=== PATIENT | male | born 1955 | race Caucasian/White ===

== ENCOUNTER → 2020-02-15 | Outpatient (CLI) | payer BC ==
--- NOTE | 2020-03-25 11:30 | REP ---
LOW-DOSE SCREENING NONCONTRAST CHEST CT HISTORY: Nicotine dependence. This report was delayed due to a protracted network interruption sustained by this facility in addition to efforts to obtain prior CT study. COMPARISON: Chest CT study has been retrieved from [facility] dated 12/29/2018. CT FINDINGS: Preliminary digital embedded systems engineer radiograph demonstrates dual-lead pacemaker. Hyperinflated lungs are noted. There are advanced emphysematous changes in the lung robles. There is a new wedge-shape peripheral infiltrate in the right lower lobe posteriorly not present on 12/29/2018. This area of ground-glass and consolidative opacity measures 3.7 cm and is most compatible with an acute pneumonia. There is a similar area of peribronchovascular opacification in the left upper lobe anteriorly, which measures 2.8 cm in greatest diameter. This is also new compared to the prior study and may reflect pneumonia as well. There is an adjacent ill-defined nodular opacity 9 mm in diameter. There are two new left upper lobe nodular opacities measuring 7 and 6 mm in greatest diameter posterosuperiorly. These were not apparent previously. There is a left apical nodule measuring 6 mm in transverse dimension x 8 mm anteroposterior, which is visible in retrospect on the prior study and has enlarged. There is no evidence of pleural effusion. There are a few scattered tiny granulomatous calcifications. There is a pleural-based noncalcified pulmonary nodule in the left lower lobe posterolaterally, which measures 5 mm in diameter. This is unchanged from the prior study. There is a perifissural nodule at the left base, which appears benign. IMPRESSION: Interval pulmonary parenchymal opacity suggestive of pneumonia. Follow-up chest CT study suggested in four to six months. MTDD
== END ==
LOC: M RAD 11:30
PROVIDERS: ATTEND Physician Assistant
DX: Z12.2 Encounter for screening for malignant neoplasm of respiratory organs (principal)

== ENCOUNTER → 2020-04-15 | Outpatient (CLI) | payer BC ==
--- NOTE | 2020-04-18 13:12 | REP ---
NON-CONTRAST CHEST CT: 04/15/20. CLINICAL: Follow-up abnormal lung findings. COMPARISON: 02/15/20, 12/16/17. TECHNIQUE: Axial non-contrast images from the thoracic inlet to the upper abdomen with coronal and sagittal reformations. FINDINGS: Advanced COPD/emphysematous changes are again noted throughout the bilateral lung robles along with scattered fibrosis/scarring and minimal bronchiectasis. Few scattered nodular densities are again identified and appear either stable or minimally improved as compared to 02/15/20. No new significant area of consolidation, nodule or mass lesion appreciated. No obvious adenopathy noted. No effusion or pneumothorax identified. Atherosclerotic changes to the thoracic aorta and coronary arteries unchanged. Limited upper abdomen demonstrates normal bilateral adrenal glands and evidence for prior cholecystectomy. Musculoskeletal structures demonstrate age related changes without acute osseous abnormality. IMPRESSION: 1. Advanced COPD/emphysematous changes similar to prior examination. 2. Previously noted ill-defined small areas of density/consolidation either remain stable or minimally improved and no new acute significant process is appreciated. Consider follow-up examination in 6 months to confirm stability. MTDD
== END ==
LOC: M RAD 13:04
PROVIDERS: ATTEND Physician Assistant
DX: J44.9 Chronic obstructive pulmonary disease, unspecified (principal); R91.8 Other nonspecific abnormal finding of lung field

== ENCOUNTER → 2020-09-18 | Outpatient (CLI) | payer BC, MEDICARE ==
--- NOTE | 2020-09-18 10:57 | REP ---
INDICATION: OTHER NON SPECIFIC ABNORMAL FINDING OF LUNG FIELD COMPARISON: 06/02/2020 (outside examination) TECHNIQUE: Axial noncontrast images from the thoracic inlet to the upper abdomen with coronal and sagittal reformations. This CT examination was performed using the following dose reduction techniques: Automated exposure control, adjustment of mA and/or kv according to the patient's size, and use of iterative reconstruction technique. FINDINGS: Advanced COPD/emphysematous changes with scattered scarring and bronchiectasis again noted. Small irregular area of nodular density in the posterior left upper lobe (image 27) is decreased from prior examination. New moderate areas of somewhat ill-defined consolidation and ground-glass opacities along with small pleural reactions are now identified in the lower lobes (right greater than left). Small new scattered nodular densities are also appreciated primarily in the right lower lung zone measuring up to approximately 13 mm (image 70). Nonspecific possibly reactive mediastinal lymph nodes measure up to approximately 12 mm short axis diameter. Thoracic aorta, pulmonary vasculature, and heart/pericardium are essentially stable with atherosclerotic changes again noted. No cardiomegaly or pericardial effusion. Limited upper abdomen demonstrates normal bilateral adrenal glands and evidence for prior cholecystectomy. IMPRESSION: New areas of consolidation involving the lower lobes as well as new scattered nodular opacities primarily in the right lower lung zone measure up to 13 mm. These findings likely represent acute infectious/inflammatory process although malignancy cannot definitively be excluded. Short-term follow-up examination is recommended. <Electronically signed by Jerald Bond > 09/18/20 [id number]
== END ==
LOC: M RAD 09:50
PROVIDERS: ATTEND Internal Medicine Pulmonary Disease
DX: R91.8 Other nonspecific abnormal finding of lung field (principal)

== ENCOUNTER → 2021-01-02 | Outpatient (CLI) | payer MEDICARE ==
--- NOTE | 2021-01-02 13:33 | REP ---
INDICATION: ABN FINDING OF LUNG COMPARISON: 09/18/2020, 06/02/2020, 02/15/2020 TECHNIQUE: Axial noncontrast images from the thoracic inlet to the upper abdomen with coronal and sagittal reformations. This CT examination was performed using the following dose reduction techniques: Automated exposure control, adjustment of mA and/or kv according to the patient's size, and use of iterative reconstruction technique. FINDINGS: Advanced COPD/emphysematous changes and scattered scarring along with 5 mm noncalcified subpleural nodule along the periphery of the left lower lobe (image 76) and small focal area of scarring in the posterior left upper lobe (image 24) remain stable through 02/15/2020. The remainder of the various scattered nodules, small opacities and areas of airspace disease throughout the previous examinations including 13 mm nodule and right lower lobe opacity on most recent exam dated 09/19/2019 have all resolved. No new or increasing abnormal findings are appreciated on current examination. No consolidation. No effusion. No pneumothorax. Tracheobronchial tree is patent. Atherosclerotic changes to the aorta and coronary arteries again noted without aortic aneurysm or cardiomegaly. No pericardial effusion. Pacemaker identified with leads in satisfactory position. Surrounding musculoskeletal structures demonstrate age-related degenerative changes. IMPRESSION: 1. Chronic advanced COPD/emphysematous changes with minimal scattered scarring. Stable small subpleural left lower lobe nodule and small focus of scarring in the left upper lobe remain unchanged through 02/15/2020. 2. All further previously noted areas of consolidation, nodules or atelectasis have resolved. No increasing or new areas of consolidation. No effusion. <Electronically signed by Jerald Bond > 01/02/21 [id number]
== END ==
LOC: M RAD 13:00
PROVIDERS: ATTEND Internal Medicine Pulmonary Disease
DX: J43.9 Emphysema, unspecified (principal)

== ENCOUNTER → 2021-10-08 | Outpatient (REF) | payer MEDICARE | LOC: M LAB REF 17:16 | PROVIDERS: ATTEND Internal Medicine Pulmonary Disease | DX: J43.1 Panlobular emphysema (principal) ==

== ENCOUNTER → 2021-12-23 | Outpatient (REF) | payer MEDICARE | LOC: M LAB REF 16:57 | PROVIDERS: ATTEND Internal Medicine Pulmonary Disease | DX: R05.9 Cough, unspecified (principal) ==

== ENCOUNTER → 2022-01-11 | Outpatient (CLI) | payer MEDICARE | LOC: M RAD 12:51 | PROVIDERS: ATTEND Internal Medicine Pulmonary Disease | DX: R05.9 Cough, unspecified (principal) ==

== ENCOUNTER → 2022-02-10 | Outpatient (CLI) | payer MEDICARE | LOC: M RAD 14:26 | PROVIDERS: ATTEND Internal Medicine Pulmonary Disease | DX: R91.8 Other nonspecific abnormal finding of lung field (principal); J43.9 Emphysema, unspecified; Z87.891 Personal history of nicotine dependence ==

== ENCOUNTER → 2022-02-16 | Outpatient (CLI) | payer MEDICARE ==
[2022-02-16 14:26] LABS: IMMUNOGLOBULIN M 67.4 MG/DL (40-230)
== END ==
LOC: M LAB 13:04
PROVIDERS: ATTEND Internal Medicine Pulmonary Disease
DX: J44.1 Chronic obstructive pulmonary disease with (acute) exacerbation (principal)

== ENCOUNTER → 2022-03-11 | Outpatient (CLI) | payer MEDICARE | LOC: M PLARAD 14:50 | PROVIDERS: ATTEND Internal Medicine Pulmonary Disease | DX: R91.8 Other nonspecific abnormal finding of lung field (principal) | CPT/HCPCS: 78815; A9552 ==

== ENCOUNTER → 2022-06-17 | Outpatient (CLI) | payer MEDICARE | LOC: M RAD 09:48 | PROVIDERS: ATTEND Internal Medicine Pulmonary Disease | DX: R91.8 Other nonspecific abnormal finding of lung field (principal); J44.9 Chronic obstructive pulmonary disease, unspecified ==

== ENCOUNTER → 2023-01-11 | Outpatient (CLI) | payer MEDICARE | LOC: M RAD 13:21 | PROVIDERS: ATTEND Internal Medicine Pulmonary Disease | DX: J44.9 Chronic obstructive pulmonary disease, unspecified (principal) ==

== ENCOUNTER 2023-08-01 09:55 | Day surgery (SDC) | payer MEDICARE ==
[~2023-08-01] VITALS: Ht 177.8 cm; Wt 76.7 kg
[~2023-08-01 09:55] MED LIST: ALBU8.5H INH; ALFU10TA3 PO; ATOR40TA75 PO; DOXE10CA PO; FINA5TAB2 PO; FLUT1BLS8 INH; MUCI600T31 PO; NS 1,000 ML IV ONE; PANT40TA29 PO; SYMB16INH INH
[2023-08-01] MEDS ORDERED: ALBUTEROL SULFATE 2.5MG/0.5ML INH NEB SOLN NEB ONE (10:45)
[2023-08-01] MEDS ORDERED: propofoL 500 MG/50 ML VIAL As Ordered ONE (11:41)
[2023-08-01] MEDS ORDERED: LIDOCAINE 2% 100MG/5ML SDV (FOR ANES.) As Ordered ONE (11:41)
[2023-08-01 12:03] VITALS: TEMP 99
[2023-08-01 12:19] VITALS: BP 134/74; O2SAT 100
== END 2023-08-01 12:32 | disposition home or self-care (01) ==
LOC: M OPP 09:55
PROVIDERS: ATTEND Internal Medicine Gastroenterology
DX: K63.5 Polyp of colon (principal); D62 Acute posthemorrhagic anemia; K57.30 Diverticulosis of large intestine without perforation or abscess without bleeding; K64.8 Other hemorrhoids; K92.1 Melena; K44.9 Diaphragmatic hernia without obstruction or gangrene; K92.2 Gastrointestinal hemorrhage, unspecified; Z87.891 Personal history of nicotine dependence; Z95.5 Presence of coronary angioplasty implant and graft; Z79.2 Long term (current) use of antibiotics; Z79.51 Long term (current) use of inhaled steroids; Z79.818 Long term (current) use of other agents affecting estrogen receptors and estrogen levels; Z79.899 Other long term (current) drug therapy

== ENCOUNTER → 2024-10-30 | Outpatient (CLI) | payer MEDICARE ==
[~2024-10-30] MED LIST changes: +ALFU10TA23 PO; -ALFU10TA3 PO; -NS 1,000 ML IV ONE
== END ==
LOC: M ONCR 14:21
PROVIDERS: ATTEND General Practice
DX: C34.11 Malignant neoplasm of upper lobe, right bronchus or lung (principal); I87.1 Compression of vein; Z87.891 Personal history of nicotine dependence; Z99.81 Dependence on supplemental oxygen; Z90.49 Acquired absence of other specified parts of digestive tract; Z79.51 Long term (current) use of inhaled steroids; Z79.899 Other long term (current) drug therapy

== ENCOUNTER → 2024-11-05 | Outpatient (CLI) | payer MEDICARE ==
[~2024-11-05] MED LIST changes: +ALBU2.5V10; +BUDE10.7; +CIPR500T39; +IRON65TA2 PO; +VENTAER; +VITA100T59 PO
== END ==
LOC: M PLARAD 13:24
PROVIDERS: ATTEND Internal Medicine Pulmonary Disease
DX: C34.11 Malignant neoplasm of upper lobe, right bronchus or lung (principal)
CPT/HCPCS: 78815; A9552

== ENCOUNTER → 2024-11-07 | Outpatient (CLI) | payer MEDICARE | LOC: M IRPRO 09:33 | PROVIDERS: ATTEND Specialist | DX: C34.90 Malignant neoplasm of unspecified part of unspecified bronchus or lung (principal) | CPT/HCPCS: 36569; C1751 ==

== ENCOUNTER 2024-11-13 08:30 | Outpatient (RCR) | payer MEDICARE ==
[2024-11-05 11:41] VITALS: BP 140/88; O2SAT 84
[2024-11-05 16:20] LABS: BASO % 0.4 % (0.0-1.0); EOS # 0.1 10^3/uL (0.0-0.5); EOS % 0.9 % (0.0-3.0); HEMATOCRIT 34.5 % (42.0-52.0); HEMOGLOBIN 9.8 g/dl (13.5-17.5); LYMPH # 0.4 10^3/uL (1.5-5.0); LYMPH % 4.3 % (24.0-44.0); MEAN CORPUSCULAR HEMOGLOBIN 25.7 pg (27.0-33.0); MEAN CORPUSCULAR HGB CONC 28.4 g/dl (32.0-36.5); MEAN CORPUSCULAR VOLUME 90.3 fl (80.0-96.0); MONO # 0.6 10^3/uL (0.0-0.8); MONO % 6.3 % (2.0-8.0); NEUTROPHILS # 8.2 10^3/uL (1.5-8.5); NEUTROPHILS % 87.4 % (36.0-66.0); PLATELET COUNT, AUTOMATED 210 10^3/uL (150-450); RED BLOOD COUNT 3.82 10^6/uL (4.30-6.10); WHITE BLOOD COUNT 9.4 10^3/uL (4.0-10.0)
[2024-11-05 16:50] LABS: ALBUMIN 2.9 G/DL (3.2-5.2); ALKALINE PHOSPHATASE 100 U/L (40-129); ALT/SGPT 17 U/L (7.0-40); AST/SGOT 22 U/L (<34); BILIRUBIN,TOTAL 0.5 MG/DL (0.3-1.2); BLOOD UREA NITROGEN 12 MG/DL (9-23); CALCIUM LEVEL 9.2 MG/DL (8.3-10.6); CARBON DIOXIDE LEVEL 38 MMOL/L (20-31); CHLORIDE LEVEL 94 MMOL/L (98-107); CREATININE FOR GFR 0.43 MG/DL (0.70-1.30); GLOMERULAR FILTRATION RATE > 90.0 (>42); GLUCOSE, FASTING 80 MG/DL (74-106); POTASSIUM SERUM 4.3 MMOL/L (3.5-5.1); SODIUM LEVEL 140 MMOL/L (136-145); TOTAL PROTEIN 6.5 G/DL (5.7-8.2)
[2024-11-05 17:09] LABS: INR 1.01; PARTIAL THROMBOPLASTIN TIME 29.2 SECONDS (24.8-34.2); PROTHROMBIN TIME 13.6 SECONDS (12.5-14.5)
[~2024-11-13] VITALS: Ht 177.8 cm; Wt 63.7 kg
[~2024-11-13 08:30] MED LIST changes: -ALBU2.5V10; +ALBU2.5V10 INH; -BUDE10.7; +BUDE10.7 INH
[2024-11-13 08:41] VITALS: BP 114/70; O2SAT 91
[2024-11-13] MEDS ORDERED: PROC10TA5 PO (09:40)
[2024-11-13] MEDS ORDERED: ONDA-84 PO (09:40)
[2024-11-13] MEDS: FOSAPREPITANT 150 MG, VIAL 2 BAG 13MM ADAPTER 1 EACH in NS 250 ML IV SCH (09:54)
[2024-11-13] MEDS: dexAMETHasone 4 MG/ML 1 ML VIAL IV SCH (09:54)
[2024-11-13] MEDS: diphenhydrAMINE 50 MG/ML VIAL IV SCH (09:55)
[2024-11-13] MEDS: FAMOTIDINE 20 MG/2 ML VIAL IV SCH (09:55)
[2024-11-13] MEDS: PALONOSETRON 0.25 MG/5 ML VIAL IV SCH (09:55)
[2024-11-13] MEDS: NS IV SCH (11:02)
[2024-11-13] MEDS: PACLITAXEL IV SCH (11:02)
[2024-11-13] MEDS: SODIUM CHLORIDE 0.9% INJ 10 ML SYR IV PRN (12:57)
[2024-11-16] MEDS ORDERED: SODIUM CHLORIDE 0.9% INJ 10 ML SYR IV PRN (08:00)
[2024-11-16] MEDS ORDERED: LEVO1TAB40 PO (11:04)
[2024-11-16 11:49] LABS: BASO % 0.3 % (0.0-1.0); EOS # 0.1 10^3/uL (0.0-0.5); HEMATOCRIT 29.5 % (42.0-52.0); HEMOGLOBIN 8.7 g/dl (13.5-17.5); LYMPH # 0.4 10^3/uL (1.5-5.0); LYMPH % 3.4 % (24.0-44.0); MEAN CORPUSCULAR HGB CONC 29.5 g/dl (32.0-36.5); MEAN CORPUSCULAR VOLUME 88.3 fl (80.0-96.0); MONO # 0.4 10^3/uL (0.0-0.8); MONO % 3.6 % (2.0-8.0); NEUTROPHILS # 9.6 10^3/uL (1.5-8.5); NEUTROPHILS % 90.9 % (36.0-66.0); PLATELET COUNT, AUTOMATED 204 10^3/uL (150-450); RED BLOOD COUNT 3.34 10^6/uL (4.30-6.10); WHITE BLOOD COUNT 10.6 10^3/uL (4.0-10.0)
[2024-11-16 12:19] LABS: MAGNESIUM LEVEL 1.7 MG/DL (1.8-2.4)
[2024-11-16 12:20] LABS: PERCENT SATURATION 38.1 % (19.7-50.0)
[2024-11-16 12:21] LABS: ALKALINE PHOSPHATASE 72 U/L (40-129); ALT/SGPT 18 U/L (7.0-40); AST/SGOT 23 U/L (<34); BILIRUBIN,TOTAL 0.6 MG/DL (0.3-1.2); BLOOD UREA NITROGEN 22 MG/DL (9-23); CALCIUM LEVEL 8.5 MG/DL (8.3-10.6); CARBON DIOXIDE LEVEL > 40.0 MMOL/L (20-31); CHLORIDE LEVEL 91 MMOL/L (98-107); CREATININE FOR GFR 0.44 MG/DL (0.70-1.30); GLOMERULAR FILTRATION RATE > 90.0 (>42); GLUCOSE, FASTING 116 MG/DL (74-106); POTASSIUM SERUM 3.8 MMOL/L (3.5-5.1); SODIUM LEVEL 139 MMOL/L (136-145); TOTAL PROTEIN 6.3 G/DL (5.7-8.2)
[2024-11-16 12:23] LABS: FERRITIN 50.7 NG/ML (10.5-307.3); FOLATE 11.4 NG/ML (>5.4)
[2024-11-16] MEDS ORDERED: ASCO500T PO (16:53)
[2024-11-16] MEDS ORDERED: TORS10TA3 PO (17:00)
[2024-11-16] MEDS ORDERED: ASPI81CH33 PO (17:01)
[2024-11-19] MEDS ORDERED: FAMOTIDINE 20 MG/2 ML VIAL IV SCH
[2024-11-19] MEDS ORDERED: PALONOSETRON 0.25 MG/5 ML VIAL IV SCH
[2024-11-19] MEDS ORDERED: dexAMETHasone 4 MG/ML 1 ML VIAL IV SCH
[2024-11-19] MEDS ORDERED: FOSAPREPITANT 150 MG, VIAL 2 BAG 13MM ADAPTER 1 EACH in NS 250 ML IV SCH
[2024-11-19] MEDS ORDERED: diphenhydrAMINE 50 MG/ML VIAL IV SCH
[2024-11-19] MEDS ORDERED: SODIUM CHLORIDE 0.9% INJ 10 ML SYR IV PRN (08:00)
[2024-11-27] MEDS ORDERED: dexAMETHasone 4 MG/ML 1 ML VIAL IV SCH
[2024-11-27] MEDS ORDERED: FAMOTIDINE 20 MG/2 ML VIAL IV SCH
[2024-11-27] MEDS ORDERED: diphenhydrAMINE 50 MG/ML VIAL IV SCH
[2024-11-27] MEDS ORDERED: FOSAPREPITANT 150 MG, VIAL 2 BAG 13MM ADAPTER 1 EACH in NS 250 ML IV SCH
[2024-11-27] MEDS ORDERED: PALONOSETRON 0.25 MG/5 ML VIAL IV SCH
[2024-11-27] MEDS ORDERED: SODIUM CHLORIDE 0.9% INJ 10 ML SYR IV PRN (08:00)
== END 2024-12-01 | disposition expired ==
LOC: M ONCM 08:30
PROVIDERS: ATTEND Specialist
DX: Z51.11 Encounter for antineoplastic chemotherapy (principal); C34.11 Malignant neoplasm of upper lobe, right bronchus or lung; I87.1 Compression of vein; I28.8 Other diseases of pulmonary vessels; J44.9 Chronic obstructive pulmonary disease, unspecified; F17.210 Nicotine dependence, cigarettes, uncomplicated; Z99.81 Dependence on supplemental oxygen; Z95.0 Presence of cardiac pacemaker; Z90.49 Acquired absence of other specified parts of digestive tract; Z51.89 Encounter for other specified aftercare
CPT/HCPCS: 78815; 80053; 85025; 85610; 85730; A9552; G0463

== ENCOUNTER → 2024-11-16 | Outpatient (REF) | payer MEDICARE ==
[~2024-11-16] MED LIST changes: +ASCO500T PO; +ASPI81CH33 PO; +LEVO1TAB40 PO; +ONDA-84 PO; +PROC10TA5 PO; +TORS10TA3 PO
[2024-11-16 12:19] LABS: BLOOD UREA NITROGEN 25 MG/DL (9-23); CREATININE FOR GFR 0.46 MG/DL (0.70-1.30); GLOMERULAR FILTRATION RATE > 90.0 (>42)
== END ==
LOC: M LAB REF 11:30
PROVIDERS: ATTEND Internal Medicine Pulmonary Disease
DX: C34.11 Malignant neoplasm of upper lobe, right bronchus or lung (principal)

== ENCOUNTER → 2024-11-16 | Outpatient (CLI) | payer MEDICARE | LOC: M RAD 11:48 | PROVIDERS: ATTEND General Practice | DX: C34.11 Malignant neoplasm of upper lobe, right bronchus or lung (principal); R50.9 Fever, unspecified; Z92.21 Personal history of antineoplastic chemotherapy; R22.31 Localized swelling, mass and lump, right upper limb; Z53.8 Procedure and treatment not carried out for other reasons ==